=== PATIENT | female | born 1935 | race Caucasian/White ===

== ENCOUNTER 2020-05-30 11:14 | Outpatient (REF) | payer MEDICARE, SELFPAY ==
[2020-05-30 13:30] LABS: Alanine Aminotransferase 15 U/L (0-31); Albumin Level 4.2 g/dL (3.5-5.0); Alkaline Phosphatase 66 U/L (39-117); Aspartate Amino Transferase 19 U/L (5-31); Bilirubin Direct 0.2 mg/dL (0.0-0.5); Bilirubin Total 0.6 mg/dL (0.0-1.0); Cholesterol 184 mg/dL; HDL Cholesterol 38 mg/dL; LDL Cholesterol Calculated 95 mg/dl; Total Protein 6.7 g/dL (6.5-8.0); Triglycerides 256 mg/dL
== END 2020-05-30 11:15 | disposition home or self-care (01) ==
LOC: HO.LAB 11:14
PROVIDERS: PCP Internal Medicine; Visit Provider Internal Medicine
DX: E78.00 Pure hypercholesterolemia, unspecified (principal)
CPT/HCPCS: 80061; 80076

== ENCOUNTER 2020-09-06 | Outpatient (REF) | payer MEDICARE, MEDICAID, SELFPAY | END 2020-09-06 00:01 | disposition home or self-care (01) | LOC: HO.VC | PROVIDERS: Visit Provider Internal Medicine | DX: Z23 Encounter for immunization (principal) | CPT/HCPCS: 0011A ==

== ENCOUNTER 2020-09-08 06:36 | Outpatient (REF) | payer MEDICARE, SELFPAY ==
[2020-09-08 07:42] LABS: Alanine Aminotransferase 21 U/L (0-31); Alkaline Phosphatase 75 U/L (39-117); Anion Gap 13 (12-20); Aspartate Amino Transferase 28 U/L (5-31); Bilirubin Total 0.4 mg/dL (0.0-1.0); Blood Urea Nitrogen 17 mg/dL (9-16); Calcium 9.4 mg/dL (8.4-10.2); Carbon Dioxide 28 mmol/L (22-29); Chloride 105 mmol/L (96-108); Cholesterol 154 mg/dL; Estimated Glomerular Filt Rate > 60; Glucose Random 120 mg/dL (60-115); HDL Cholesterol 36 mg/dL; LDL Cholesterol Calculated 87 mg/dl; Potassium 3.8 mmol/L (3.3-5.1); Sodium 142 mmol/L (135-145); Total Protein 6.5 g/dL (6.5-8.0); Triglycerides 158 mg/dL
== END 2020-09-08 06:37 | disposition home or self-care (01) ==
LOC: HO.LAB 06:36
PROVIDERS: Visit Provider Internal Medicine
DX: E78.00 Pure hypercholesterolemia, unspecified (principal)
CPT/HCPCS: 36415; 80053; 80061

== ENCOUNTER 2020-10-03 | Outpatient (REF) | payer MEDICARE, MEDICAID, SELFPAY | END 2020-10-03 00:01 | disposition home or self-care (01) | LOC: HO.VC | PROVIDERS: Visit Provider Internal Medicine | DX: Z23 Encounter for immunization (principal) | CPT/HCPCS: 0012A ==

== ENCOUNTER 2021-04-29 06:41 | Emergency (ER) | payer OTHER, MEDICARE, SELFPAY ==
--- NOTE | ~2021-04-29 | CT_ITS ---
EXAM: CT HEAD WITHOUT CONTRAST CT CERVICAL SPINE INDICATION: Reason for Exam head injury TECHNIQUE: A noncontrast CT scan was performed from the skull base to the vertex. A noncontrast CT scan of the cervical spine was performed from the base of the skull through T1. Coronal and sagittal reformats were obtained at the acquisition workstation. Dose length product is 1575 mGy-cm. This CT examination was performed using dose optimization techniques as appropriate, variously including the following: *Automated exposure control *Adjustment of mA and/or kV according to patient size (this includes techniques or standardized protocols for targeted exams where dose is matched to indication/reason for exam; i.e. extremities or head) *Use of iterative reconstruction technique COMPARISON: MRI 07/06/2012 FINDINGS: Head: No evidence of acute intracranial hemorrhage or extra-axial fluid collection. No evidence of acute territorial infarction. Periventricular white matter hypodensities, a nonspecific finding but most commonly due to chronic small vessel ischemic disease. Ventricles are prominent in size in proportion to sulcal depth in keeping with global volume loss. No evidence of mass lesion, mass effect or midline shift. The calvarium is intact. Limited views of the paranasal sinuses are unremarkable. No evidence of acute sinusitis. Mastoid air cells are well aerated and middle ear cavities are clear. Bilateral lens extractions. Right frontal scalp hematoma. Cervical Spine: Straightening of cervical lordosis, likely due to immobilization collar and/or muscular spasm. Cervical vertebral bodies are normal in height and alignment. Facet joints are anatomically aligned bilaterally. Spinous processes are intact and well aligned. The atlantodens articulation is unremarkable. The atlantooccipital junction is unremarkable. No prevertebral soft tissue swelling. Multilevel degenerative disc disease throughout the cervical spine. There is also degenerative uncovertebral spurring, anterior osteophytes and facet arthropathy. Lateral masses of C1 and C2 are well aligned. Paravertebral muscles and fat planes are symmetric. No thyroid masses identified. No bulky cervical lymphadenopathy. Limited views of the lung apices do not demonstrate acute findings. Minimal pleural-parenchymal scarring. Atherosclerotic disease. CT/CT cervical spine wo con IMPRESSION: 1. No evidence of acute intracranial abnormality. 2. Degenerative changes of the cervical spine without CT evidence of traumatic injury. 3. Small right frontal scalp hematoma.
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
[2021-04-29 07:08] VITALS: BP 104/76; BP 157/78; PULSE 65; PULSE 84; RESP 16; TEMP 36.5; O2SAT 95; O2SAT 99; BMI 21.0
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
[2021-04-29 07:55] LABS: MANUAL DIFF FLAG NO
[2021-04-29 07:57] LABS: Basophils Absolute Auto 0.1 X10*3/uL (0.0-0.2); Basophils Percent Auto 1.1 % (0-2); Eosinophils Absolute Auto 0.1 X10*3/uL (0.0-0.4); Eosinophils Percent Auto 1.2 % (0-4); Hematocrit 43.6 % (37-47); Hemoglobin 13.9 g/dl (12.0-16.0); Imm Gran Abs Auto 0.06 X10*3/uL (0.00-0.03); Imm Gran Pct Auto 0.8 % (0.0-0.4); Lymphocytes Absolute Auto 2.2 X10*3/uL (1.2-4.9); Mean Corpuscular HGB Conc 31.9 g/dl (31.0-35.0); Mean Corpuscular Hemoglobin 29.3 pg (27.0-33.0); Mean Platelet Volume 8.6 fL (9.4-12.3); Monocytes Absolute Auto 0.8 X10*3/uL (0.1-1.2); Monocytes Percent Auto 10.5 % (2-11); Neutrophils Absolute Auto 4.3 X10*3/uL (2.0-8.3); Neutrophils Percent Auto 57.4 % (45-73); Platelet Count 190 X10*3/uL (160-400); Red Blood Count 4.74 X10*6/uL (4.20-5.50); Red Cell Distribution Width 13.6 % (11.0-16.0); White Blood Count 7.5 X10*3/uL (4.8-10.8)
[2021-04-29 08:23] LABS: Anion Gap 14 (12-20); Blood Urea Nitrogen 14 mg/dL (9-16); Carbon Dioxide 28 mmol/L (22-29); Chloride 104 mmol/L (96-108); Creatinine Clr Calc Pharmacy 45.1; Estimated Glomerular Filt Rate > 60; Glucose Random 100 mg/dL (60-115); Potassium 4.4 mmol/L (3.3-5.1); Sodium 142 mmol/L (135-145)
--- NOTE | 2021-04-29 08:23 | PC.NURSE ---
Daughter to bedside. Assisted pt on bedpan to void. Out of room for ct scan at this time
== END 2021-04-29 09:50 | disposition home or self-care (01) ==
PROVIDERS: Emergency Provider Emergency Medicine Emergency Medical Services; PCP Internal Medicine
DX: S09.90XA Unspecified injury of head, initial encounter (principal); G44.309 Post-traumatic headache, unspecified, not intractable; M54.2 Cervicalgia; V43.52XA Car driver injured in collision with other type car in traffic accident, initial encounter; Y93.9 Activity, unspecified; Y92.410 Unspecified street and highway as the place of occurrence of the external cause; Y99.9 Unspecified external cause status; Z79.899 Other long term (current) drug therapy; Z79.82 Long term (current) use of aspirin; Z87.891 Personal history of nicotine dependence
CPT/HCPCS: 36415; 70450; 71250; 72125; 80048; 85025; 99284

== ENCOUNTER 2021-06-13 09:00 | Outpatient (RCR) | payer OTHER, MEDICARE, SELFPAY ==
[2021-05-15 09:14] VITALS: BP 159/67; PULSE 66; O2SAT 94
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
== END 2021-06-13 09:54 | disposition home or self-care (01) ==
LOC: HO.PT 09:00
PROVIDERS: PCP Internal Medicine; Visit Provider Nurse Practitioner Family
DX: M54.2 Cervicalgia (principal); M54.9 Dorsalgia, unspecified
CPT/HCPCS: 97110; 97140; 97162; 97530

== ENCOUNTER 2021-08-06 15:52 | Outpatient (REF) | payer MEDICARE, OTHER, SELFPAY ==
[2021-08-06 16:48] LABS: Basophils Absolute Auto 0.1 X10*3/uL (0.0-0.2); Eosinophils Absolute Auto 0.2 X10*3/uL (0.0-0.4); Eosinophils Percent Auto 2.3 % (0-4); Hematocrit 42.7 % (37.0-47.0); Hemoglobin 13.3 g/dl (12.0-16.0); Imm Gran Abs Auto 0.05 X10*3/uL (0.00-0.03); Imm Gran Pct Auto 0.6 % (0.0-0.4); Lymphocytes Absolute Auto 3.5 X10*3/uL (1.2-4.9); Lymphocytes Percent Auto 43.4 % (20-40); MANUAL DIFF FLAG NO; Mean Corpuscular HGB Conc 31.1 g/dl (31.0-35.0); Mean Corpuscular Hemoglobin 29.6 pg (27.0-33.0); Mean Corpuscular Volume 94.9 fL (80.0-98.0); Mean Platelet Volume 9.2 fL (9.4-12.3); Monocytes Absolute Auto 0.9 X10*3/uL (0.1-1.2); Monocytes Percent Auto 11.5 % (2-11); Neutrophils Absolute Auto 3.4 x10*3/uL (2.0-8.3); Neutrophils Percent Auto 41.2 % (45-73); Platelet Count 215 X10*3/uL (160-400); Red Cell Distribution Width 13.5 % (11.0-16.0); White Blood Count 8.2 X10*3/uL (4.8-10.8)
[2021-08-06 17:22] LABS: B Type Natriuretic Peptide 124 pg/mL (<100)
[2021-08-06 17:29] LABS: Alanine Aminotransferase 29 U/L (0-31); Albumin Level 4.1 g/dL (3.5-5.0); Alkaline Phosphatase 108 U/L (39-117); Anion Gap 9 (12-20); Aspartate Amino Transferase 31 U/L (5-31); Bilirubin Total 0.3 mg/dL (0.0-1.0); Blood Urea Nitrogen 17 mg/dL (9-16); Carbon Dioxide 32 mmol/L (22-29); Chloride 105 mmol/L (96-108); Cholesterol 181 mg/dL; Estimated Glomerular Filt Rate > 60; Glucose Random 88 mg/dL (60-115); HDL Cholesterol 41 mg/dL; LDL Cholesterol Calculated 78 mg/dl; Potassium 4.6 mmol/L (3.3-5.1); Sodium 141 mmol/L (135-145); Total Protein 7.1 g/dL (6.5-8.0); Triglycerides 310 mg/dL
[2021-08-06 17:37] LABS: Free T4 (Free Thyroxine) 0.84 ng/dL (0.71-1.85); Thyroid Stimulating Hormone 0.93 uIU/mL (0.32-4.0); Vitamin D 25-OH Total 55.9 ng/mL (>30)
[2021-08-06 19:43] LABS: Folate > 20.0 ng/mL (> or = 4.0); Vitamin B12 533 pg/mL (200-900)
== END 2021-08-06 15:53 | disposition home or self-care (01) ==
LOC: HO.LAB 15:52
PROVIDERS: PCP Internal Medicine; Visit Provider Internal Medicine
DX: E78.00 Pure hypercholesterolemia, unspecified (principal); I25.5 Ischemic cardiomyopathy
CPT/HCPCS: 36415; 80053; 80061; 82306; 82607; 82746; 83880; 84439; 84443; 85025

== ENCOUNTER 2022-12-05 09:00 | Outpatient (RCR) | payer MEDICARE, OTHER, SELFPAY | END 2023-01-14 09:10 | disposition home or self-care (01) | LOC: HO.PTCHIC 09:00 | PROVIDERS: PCP Internal Medicine; Visit Provider Physician Assistant Medical | DX: M43.6 Torticollis (principal) | CPT/HCPCS: 97110; 97140; 97163 ==

== ENCOUNTER 2023-02-19 13:13 | Outpatient (AMB) | payer MEDICARE, SELFPAY ==
[2023-02-19 13:18] VITALS: BP 122/72; PULSE 78; O2SAT 91; BMI 26.2
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
== END 2023-02-19 14:14 | disposition home or self-care (01) ==
PROVIDERS: PCP Internal Medicine; Visit Provider Internal Medicine
DX: I10 Essential (primary) hypertension (principal); S12.600A Unspecified displaced fracture of seventh cervical vertebra, initial encounter for closed fracture; J43.9 Emphysema, unspecified; C67.9 Malignant neoplasm of bladder, unspecified; N20.0 Calculus of kidney; R41.89 Other symptoms and signs involving cognitive functions and awareness; F41.1 Generalized anxiety disorder; I25.5 Ischemic cardiomyopathy; I25.10 Atherosclerotic heart disease of native coronary artery without angina pectoris; E78.00 Pure hypercholesterolemia, unspecified
CPT/HCPCS: 99214

== ENCOUNTER → 2023-05-14 12:55 | Outpatient (REF) | payer MEDICARE, OTHER, SELFPAY | LOC: HO.SL 12:55 | PROVIDERS: PCP Internal Medicine; Visit Provider Internal Medicine | DX: G47.33 Obstructive sleep apnea (adult) (pediatric) (principal) | CPT/HCPCS: 95806 ==

== ENCOUNTER → 2023-05-14 13:06 | Outpatient (BNV) | payer MEDICARE, SELFPAY | PROVIDERS: PCP Internal Medicine; Visit Provider Internal Medicine | DX: R06.83 Snoring (principal) | CPT/HCPCS: 95806 ==

== ENCOUNTER 2023-08-27 08:47 | Outpatient (AMB) | payer MEDICARE, SELFPAY ==
[2023-08-27 08:53] VITALS: BP 120/76; PULSE 74; O2SAT 96; BMI 26.3
--- NOTE | 2023-08-27 08:53 | MHC.PC.OV ---
Vital Signs 08/27/23 08:53 Height 5 ft 2 in Weight 144 lb BMI 26.3 BP 120/76 Blood Pressure Location Lt brachial Position Sitting Pulse 74 Pulse Source Pulse Oximeter Pulse Oximetry (%) 96 Oxygen Delivery Method Room Air Intake Visit Reasons: cad Allergies alendronate sodium [Fosamax] Allergy (Unknown, Verified 08/27/23 08:53) unknown rosuvastatin [Crestor] Allergy (Unknown, Verified 08/27/23 08:53) leg pain psyllium Adverse Reaction (Severe, Verified 08/27/23 08:53) Rash Medication List - Last Reconciled 08/27/23 by Ben Lopez Po, acetaminophen (Tylenol Extra Strength) 500 mg PO Q6H PRN alprazolam 0.5 mg PO BID PRN 90 days ascorbic acid (vitamin C) 1 g PO BID aspirin (Adult Low Dose Aspirin) 81 mg PO DAILY atorvastatin 20 mg PO DAILY cholecalciferol (vitamin D3) 25 mcg PO DAILY clopidogrel 75 mg PO DAILY coenzyme Q10 (Co Q-10) 100 mg PO DAILY dextrin (Easy Fiber) grams PO donepezil 10 mg PO BEDTIME fluticasone furoate-vilanterol 200-25 mcg/dose (Breo Ellipta) 1 inh inhalation DAILY garlic 200 mg PO DAILY ipratropium bromide 2 sprays intranasal BID memantine (Namenda) 5 mg PO BID 90 days metoprolol succinate ER 25 mg PO DAILY 90 days multivitamin 1 tab PO DAILY nitroglycerin 0.4 mg sublingual Q5M PRN Oxygen Home Use please discontinue OXYGEN therapy propylene glycol 0.6% (Systane Complete) 1 drp ophthalmic (eye) DAILY PRN sacubitril-valsartan 49-51 mg 1 tab PO BID vit [id number] mg (Bioflex) tabs PO zolpidem 5 mg PO BEDTIME PRN Tobacco use date assessed: 08/27/23 Fall risk assessment: No Falls in past year Last assessed Fall Risk: 08/27/23 Dental Screening Dental Screen Date: 08/27/23 Did you have a dental visit in the last 12 months?: Yes Did you have a dental problem in the last 6 months where you did not have access to dental care?: No Was dental information given to patient?: Patient has dentist HPI cad HPI Details 88-year-old overweight female with a history of nephrolithiasis C7 cervical fracture generalized anxiety disorder cognitive impairment cardiomyopathy COPD CAD hypercholesterolemia hypertension and urinary bladder cancer last seen in February 2023. Patient is here for follow-up. Review of the notes June 2023 seen by Cardiology MYLENE burt.. Patient also had a sleep study done May 2023 showing normal sleep study noted snoring 3rd 9% PFSH Medical History (Updated 08/27/23 @ 09:23 by Ben Matson MD) Obstructive sleep apnea C7 cervical fracture Traumatic coccydynia Cognitive impairment Cervical spinal stenosis Tubular adenoma of colon Right rotator cuff tear Wrist fracture, right Ankle fracture, left Urinary bladder cancer Peripheral vascular disease Insomnia Cardiomyopathy Vitamin D deficiency Lumbar degenerative disc disease Peripheral neuropathy COPD (chronic obstructive pulmonary disease) Coronary artery disease Hypercholesterolemia Hypertension Surgical History History of surgery History of hip replacement History of cataract surgery Family History (Updated 11/22/22 @ 08:51 by Lizabeth Herrera CMA) Father Medical history unknown Mother Diabetes Social History (Updated 05/04/21 @ 14:35 by LATOYA Porras) Housing: House Alcohol intake: current Alcohol intake frequency: holidays/special occasions only Patient Tobacco Use Status: Former Tobacco user Tobacco use type: Cigarette e-Cigarette/Vaping Use: Never Used Second Hand Smoke Exposure: Yes service: No Current occupational status: retired and disabled Cognitive needs: No Hearing needs: No Vision needs: Yes Questionnaire PHQ-9 Over the last 2 weeks, how often have you been bothered by any of the following problems? 1. Little interest or pleasure in doing things: nearly every day 2. Feeling down, depressed, or hopeless: nearly every day 3. Trouble falling or staying asleep, or sleeping too much: nearly every day 4. Feeling tired or having little energy: more than half the days 5. Poor appetite or overeating: not at all 6. Feeling bad about yourself - or that you are a failure or have let yourself or your family down: several days 7. Trouble concentrating on things, such as reading the newspaper or watching television: not at all 8. Moving or speaking so slowly that other people could have noticed. Or the opposite - being so fidgety or restless that you have been moving around a lot more than usual: not at all 9. Thoughts that you would be better off or of hurting yourself in some way: not at all Total score: 12 Depression Screening Interpretation: Positive Depression Screening Done: Yes Source: Developed by Drs. Ryan Dinh, Jannette Rodgers, Elmer Garcia and colleagues, with an educational tushar from [employer]. Thrive Questionnaire Date Thrive assessed: 08/27/23 I am a: Patient What is your living situation today?: I have a steady place to live Within the past 12 months, did the food you bought not last and you didn't have the money to get more?: Never true Within the past 12 months, did you worry whether your food would run out before you got money to buy more?: Never true Do you have trouble paying for medicines?: No Do you have trouble getting transportation to medical appointments?: No Do you have trouble paying your heating and electricity bill?: No Do you have trouble taking care of your child, family member or friend?: No Do you have trouble with day-to-day activities such as bathing, preparing meals, shopping, managing finances, etc.?: No Are you currently unemployed and looking for a job?: No Are you interested in more education?: No Currently or been in a relationship where the following occur: no concerns reported THRIVE Score: 0 AUDIT C Alcohol Use Questionnaire (AUDIT-C) 1. How often do you have a drink containing alcohol?: Monthly or less 2. How many drinks containing alcohol do you have on a typical day when you are drinking?: 1 or 2 3. How often do you have six or more drinks on one occasion?: Never Total Score: 1 OLEG-7 AMB Questionnaire OLEG-7 Date OLEG - 7 assessed: 08/27/23 Feeling nervous, anxious, or on edge: 1 = Several days Not being able to stop or control worryin = Not at all Worrying too much about different things: 0 = Not at all Trouble relaxin = Not at all Being so restless that it is hard to sit still: 0 = Not at all Becoming easily annoyed or irritable: 0 = Not at all Feeling afraid as if something awful might happen: 0 = Not at all Total OLEG-7 score (0-4 normal; 5-9 mild; 10-14 moderate; 15-21 severe): 1 Source: Developed by Drs. Ryan Dinh, Jannette Rodgers, Elmer Garcia and colleagues, with an educational tushar from [employer]. Physical exam (Primary Care) Vital Signs: Last Vital Signs Pulse 74 08/27/23 08:53 BP 120/76 08/27/23 08:53 Pulse Ox 96 08/27/23 08:53 Oxygen Delivery Method Room Air 08/27/23 08:53 BMI result Body Mass Index 26.3 Tobacco/Smoking Status: Tobacco use Status Tobacco use date assessed 08/27/23 08/27/23 08:59 Patient Tobacco Use Status Former Tobacco user 08/27/23 08:59 Tobacco use type Cigarette 08/27/23 08:59 e-Cigarette/Vaping Use Never Used 08/27/23 08:59 PHQ-9: PHQ-9 Score PHQ-9: Total score 12 08/27/23 08:59 Depression Screening Interpretation: Positive Thrive Assessment: Date of Thrive Assessment Date Thrive assessed 08/27/23 08/27/23 08:59 Currently or been in a relationship where the following occur: no concerns reported Const General: alert; No acute distress Eyes Conjunctivae: conjunctivae normal Resp Auscultation: clear to auscultation bilaterally Cardio Rate: regular rate Rhythm: regular rhythm GI Inspection: Yes normal to inspection Extrem General: Yes normal to inspection and No edema Assessment and Plan Assessment & Plan (1) Hypertension: Code(s): I10 - Essential (primary) hypertension Plan: Continue with blood pressure medication. Decrease salt intake and exercise patient takes metoprolol 25 mg once a day Entresto 49/51 twice a day (2) Hypercholesterolemia: Code(s): E78.00 - Pure hypercholesterolemia, unspecified Plan: Avoid fried foods, chicken skin, eggs, butter margarine, pastries and meat. Be it pork or beef they have a lot of cholesterol LDL goal of less than 70 and triglyceride of less than 150 atorvastatin 20 mg once a day patient is advised to get blood work done (3) Coronary artery disease: Comment: [place] 1990 with stent placement 2003 Dr. Lance echo October 2016 ejection fraction 40-45% and STEMI May 2018 catheterization done left circumflex occluded good LAD and RCA echo March 2019 global hypokinesis 45-50% grade 1 diastolic dysfunction September 2019 moderate global hypokinesis 40-45% January 2020 EF 40-45% Code(s): I25.10 - Atherosclerotic heart disease of [place] coronary artery without angina pectoris Qualifiers: Coronary Disease-Associated Artery/Lesion type: [place] artery [place] vs. transplanted heart: [place] heart Associated angina: without angina Qualified Code(s): I25.10 - Atherosclerotic heart disease of [place] coronary artery without angina pectoris Plan: Control the cholesterol, weight, blood pressure, diabetes continue with aspirin (4) Cardiomyopathy: Comment: Echocardiogram February 2023 severe global hypokinesis LV EF 25-30% moderate mitral regurg Code(s): I42.9 - Cardiomyopathy, unspecified Qualifiers: Cardiomyopathy type: ischemic Qualified Code(s): I25.5 - Ischemic cardiomyopathy Plan: Continue to follow up with Cardiology (5) Generalized anxiety disorder: Code(s): F41.1 - Generalized anxiety disorder Plan: Continue with present medication (6) C7 cervical fracture: Code(s): S12.600A - Unspecified displaced fracture of seventh cervical vertebra, initial encounter for closed fracture Plan: Keep active do stretches Medications: Refilled zolpidem 5 mg PO BEDTIME PRN 30 tabs 1RF sleep G47.00 - Insomnia, unspecified Coding Level of Care Code Est Pt Level 4 (96391) Diagnoses Hypertension I10 Hypercholesterolemia E78.00 Coronary artery disease involving [place] coronary artery of [place] heart without angina pectoris I25.10 Coronary Disease-Associated Artery/Lesion type: [place] artery [place] vs. transplanted heart: [place] heart Associated angina: without angina Ischemic cardiomyopathy I25.5 Cardiomyopathy type: ischemic Generalized anxiety disorder F41.1 C7 cervical fracture S12.600A
== END 2023-08-27 09:41 | disposition home or self-care (01) ==
PROVIDERS: PCP Internal Medicine; Visit Provider Internal Medicine
DX: I10 Essential (primary) hypertension (principal); S12.600A Unspecified displaced fracture of seventh cervical vertebra, initial encounter for closed fracture; E78.00 Pure hypercholesterolemia, unspecified; I25.5 Ischemic cardiomyopathy; I25.10 Atherosclerotic heart disease of native coronary artery without angina pectoris; F41.1 Generalized anxiety disorder
CPT/HCPCS: 99214

== ENCOUNTER 2024-02-23 07:03 | Outpatient (REF) | payer MEDICARE, SELFPAY ==
[2024-02-23 07:16] LABS: MANUAL DIFF FLAG NO
[2024-02-23 08:01] LABS: Basophils Absolute Auto 0.1 X10*3/uL (0.0-0.2); Basophils Percent Auto 1.1 % (0-2); Eosinophils Absolute Auto 0.1 X10*3/uL (0.0-0.4); Eosinophils Percent Auto 1.2 % (0-4); Hematocrit 41.7 % (37.0-47.0); Hemoglobin 13.8 g/dl (12.0-16.0); Imm Gran Abs Auto 0.06 X10*3/uL (0.00-0.03); Imm Gran Pct Auto 0.9 % (0.0-0.4); Lymphocytes Absolute Auto 2.4 X10*3/uL (1.2-4.9); Lymphocytes Percent Auto 36.6 % (20-40); Mean Corpuscular HGB Conc 33.1 g/dl (31.0-35.0); Mean Corpuscular Hemoglobin 30.5 pg (27.0-33.0); Mean Corpuscular Volume 92.1 fL (80.0-98.0); Monocytes Absolute Auto 0.8 X10*3/uL (0.1-1.2); Monocytes Percent Auto 12.2 % (2-11); Neutrophils Absolute Auto 3.1 x10*3/uL (2.0-8.3); Platelet Count 208 X10*3/uL (160-400); Red Blood Count 4.53 X10*6/uL (4.20-5.50); Red Cell Distribution Width 14.4 % (11.0-16.0); White Blood Count 6.6 X10*3/uL (4.8-10.8)
[2024-02-23 08:20] LABS: B Type Natriuretic Peptide 163 pg/mL (<100)
[2024-02-23 08:32] LABS: Appearance Urine Clear; Color Urine Yellow; Glucose Urine UA Negative (Negative); Leukocyte Esterase Urine Moderate (2+) (Negative); Nitrite Urine Negative (Negative); Specific Gravity - Urine 1.015 (1.005-1.025); UMIC TRIGGER UACC YES; Urine Blood Moderate (2+) (Negative); Urine Ketones Negative (Negative); Urine Protein Negative (Neg-Trace)
[2024-02-23 08:34] LABS: Alanine Aminotransferase 16 U/L (0-31); Albumin Level 4.1 g/dL (3.5-5.0); Alkaline Phosphatase 76 U/L (39-117); Anion Gap 14 (12-20); Aspartate Amino Transferase 19 U/L (5-31); Bilirubin Total 0.3 mg/dL (0.0-1.0); Blood Urea Nitrogen 9 mg/dL (9-16); Carbon Dioxide 25 mmol/L (22-29); Chloride 107 mmol/L (96-108); Cholesterol 177 mg/dL (<200); Estimated Glomerular Filt Rate > 60; Glucose Random 96 mg/dL (60-115); HDL Cholesterol 52 mg/dL (>40); LDL Cholesterol Calculated 97 mg/dL (<100); Potassium 3.9 mmol/L (3.3-5.1); Sodium 142 mmol/L (135-145); Total Protein 6.7 g/dL (6.5-8.0); Triglycerides 144 mg/dL (<150)
[2024-02-23 08:43] LABS: Bacteria Urine Trace (None Seen); Hyaline Casts Urine 0-2 /LPF (0-2); UACC Culture Trigger YES
[2024-02-23 08:54] LABS: Thyroid Stimulating Hormone 1.35 uIU/mL (0.32-4.0); Vitamin D 25-OH Total 51.9 ng/mL (>30)
[2024-02-23 08:59] LABS: Folate 13.1 ng/mL (> or = 4.0); Vitamin B12 380 pg/mL (200-900)
== END 2024-02-23 07:04 | disposition home or self-care (01) ==
LOC: HO.LAB 07:03
PROVIDERS: PCP Internal Medicine; Visit Provider Internal Medicine
DX: I25.10 Atherosclerotic heart disease of native coronary artery without angina pectoris (principal); E78.00 Pure hypercholesterolemia, unspecified; R30.0 Dysuria; R82.90 Unspecified abnormal findings in urine
CPT/HCPCS: 36415; 80053; 80061; 81001; 82306; 82607; 82746; 83880; 84439; 84443; 85025; 87086

== ENCOUNTER 2024-02-25 08:31 | Outpatient (AMB) | payer MEDICARE, SELFPAY ==
[2024-02-25 08:36] VITALS: BP 122/68; PULSE 64; O2SAT 94; BMI 25.4
--- NOTE | 2024-02-25 08:36 | MHC.PC.OV ---
Vital Signs 02/25/24 08:36 Height 5 ft 2 in Weight 139 lb BMI 25.4 BP 122/68 Blood Pressure Location Lt brachial Position Sitting Pulse 64 Pulse Source Pulse Oximeter Pulse Oximetry (%) 94 Oxygen Delivery Method Room Air Intake Visit Reasons: Hypertension Allergies alendronate sodium [Fosamax] Allergy (Unknown, Verified 02/25/24 08:36) unknown rosuvastatin [Crestor] Allergy (Unknown, Verified 02/25/24 08:36) leg pain psyllium Adverse Reaction (Severe, Verified 02/25/24 08:36) Rash Tobacco use date assessed: 08/27/23 Fall risk assessment: No Falls in past year Last assessed Fall Risk: 02/25/24 Dental Screening Dental Screen Date: 08/27/23 HPI Hypertension HPI Details 88-year-old female with hypertension coronary artery disease ischemic cardiomyopathy hypercholesterolemia history of C7 cervical fracture coming in for follow-up. Last seen in 08/23/2023. Review of the notes has followed up with Cardiology in October 2023 to it. Echocardiogram last in October. PAtient cognition is getting worse and family is noticing it worse. they have the health care proxy form would like this to be invoked. [facility] Medical History (Updated 08/27/23 @ 09:23 by Ben Matson MD) Obstructive sleep apnea C7 cervical fracture Traumatic coccydynia Cognitive impairment Cervical spinal stenosis Tubular adenoma of colon Right rotator cuff tear Wrist fracture, right Ankle fracture, left Urinary bladder cancer Peripheral vascular disease Insomnia Cardiomyopathy Vitamin D deficiency Lumbar degenerative disc disease Peripheral neuropathy COPD (chronic obstructive pulmonary disease) Coronary artery disease Hypercholesterolemia Hypertension Surgical History History of surgery History of hip replacement History of cataract surgery Family History (Updated 11/22/22 @ 08:51 by Lizabeth Herrera CMA) Father Medical history unknown Mother Diabetes Social History (Updated 05/04/21 @ 14:35 by LATOYA Porras) Housing: House Alcohol intake: current Alcohol intake frequency: holidays/special occasions only Patient Tobacco Use Status: Former Tobacco user Tobacco use type: Cigarette e-Cigarette/Vaping Use: Never Used Second Hand Smoke Exposure: Yes service: No Current occupational status: retired and disabled Cognitive needs: No Hearing needs: No Vision needs: Yes Questionnaire PHQ-9 Over the last 2 weeks, how often have you been bothered by any of the following problems? 1. Little interest or pleasure in doing things: nearly every day 2. Feeling down, depressed, or hopeless: nearly every day 3. Trouble falling or staying asleep, or sleeping too much: nearly every day 4. Feeling tired or having little energy: more than half the days 5. Poor appetite or overeating: not at all 6. Feeling bad about yourself - or that you are a failure or have let yourself or your family down: several days 7. Trouble concentrating on things, such as reading the newspaper or watching television: not at all 8. Moving or speaking so slowly that other people could have noticed. Or the opposite - being so fidgety or restless that you have been moving around a lot more than usual: not at all 9. Thoughts that you would be better off or of hurting yourself in some way: not at all Total score: 12 Depression Screening Interpretation: Positive Depression Screening Done: Yes Source: Developed by Drs. Ryan Dinh, Elmer Little and colleagues, with an educational tushar from [employer]. Thrive Questionnaire Date Thrive assessed: 08/27/23 AUDIT C Alcohol Use Questionnaire (AUDIT-C) 1. How often do you have a drink containing alcohol?: Monthly or less 2. How many drinks containing alcohol do you have on a typical day when you are drinking?: 1 or 2 3. How often do you have six or more drinks on one occasion?: Never Total Score: 1 OLEG-7 AMB Questionnaire OLEG-7 Date OLEG - 7 assessed: 08/27/23 Source: Developed by Drs. Ryan Dinh, Jannette Rodgers, Elmer Garcia and colleagues, with an educational tushar from [employer]. Physical exam (Primary Care) Vital Signs: Last Vital Signs Pulse 64 02/25/24 08:36 BP 122/68 02/25/24 08:36 Pulse Ox 94 02/25/24 08:36 Oxygen Delivery Method Room Air 02/25/24 08:36 BMI result Body Mass Index 25.4 Tobacco/Smoking Status: Tobacco use Status Tobacco use date assessed 08/27/23 02/25/24 08:42 Patient Tobacco Use Status Former Tobacco user 02/25/24 08:42 Tobacco use type Cigarette 02/25/24 08:42 e-Cigarette/Vaping Use Never Used 02/25/24 08:42 PHQ-9: PHQ-9 Score PHQ-9: Total score 12 02/25/24 08:42 Depression Screening Interpretation: Positive Thrive Assessment: Date of Thrive Assessment Date Thrive assessed 08/27/23 02/25/24 08:42 Const General: alert; No acute distress Eyes Conjunctivae: conjunctivae normal Resp Auscultation: clear to auscultation bilaterally Cardio Rate: regular rate Rhythm: regular rhythm GI Inspection: Yes normal to inspection Extrem General: Yes normal to inspection and No edema Assessment and Plan Assessment & Plan (1) Coronary artery disease: Comment: [place] 1990 with stent placement 2003 Dr. Lance echo October 2016 ejection fraction 40-45% and STEMI May 2018 catheterization done left circumflex occluded good LAD and RCA echo March 2019 global hypokinesis 45-50% grade 1 diastolic dysfunction September 2019 moderate global hypokinesis 40-45% January 2020 EF 40-45% Code(s): I25.10 - Atherosclerotic heart disease of [place] coronary artery without angina pectoris Qualifiers: Coronary Disease-Associated Artery/Lesion type: [place] artery [place] vs. transplanted heart: [place] heart Associated angina: without angina Qualified Code(s): I25.10 - Atherosclerotic heart disease of [place] coronary artery without angina pectoris Plan: Control the cholesterol, weight, blood pressure, diabetes continue with aspirin patient is also on clopidogrel (2) Hypertension: Code(s): I10 - Essential (primary) hypertension Plan: Continue with blood pressure medication. Decrease salt intake and exercise continue with metoprolol 25 mg once a day Entresto 49/51 mg twice a day (3) Hypercholesterolemia: Code(s): E78.00 - Pure hypercholesterolemia, unspecified Plan: Avoid fried foods, chicken skin, eggs, butter margarine, pastries and meat. Be it pork or beef they have a lot of cholesterol LDL goal of less than 70 and triglyceride of less than 150 presently on atorvastatin 20 mg once a day (4) COPD (chronic obstructive pulmonary disease): Code(s): J44.9 - Chronic obstructive pulmonary disease, unspecified Qualifiers: COPD type: emphysema Emphysema type: unspecified Qualified Code(s): J43.9 - Emphysema, unspecified Plan: Continue with Breo and reminded about rinsing mouth after using it. (5) Cardiomyopathy: Comment: Echocardiogram February 2023 severe global hypokinesis LV EF 25-30% moderate mitral regurg Code(s): I42.9 - Cardiomyopathy, unspecified Qualifiers: Cardiomyopathy type: ischemic Qualified Code(s): I25.5 - Ischemic cardiomyopathy Plan: Patient follows up with Cardiology continuing present medication (6) Generalized anxiety disorder: Code(s): F41.1 - Generalized anxiety disorder Plan: Continue with present medication Orders: Orders Vitamin B12 and Folate 6 Months I25.5 - Ischemic cardiomyopathy Magnesium 6 Months I25.5 - Ischemic cardiomyopathy B Type Natriuretic Peptide 6 Months I25.5 - Ischemic cardiomyopathy Complete Blood Count Auto Diff 6 Months I25.5 - Ischemic cardiomyopathy Comprehensive Met. Panel 6 Months I25.5 - Ischemic cardiomyopathy Free T4 (Free Thyroxine) 6 Months I25.5 - Ischemic cardiomyopathy Thyroid Stimulating Hormone 6 Months I25.5 - Ischemic cardiomyopathy Vitamin D 25-OH Total 6 Months I25.5 - Ischemic cardiomyopathy Medications: New albuterol sulfate 90 mcg/actuation (Proventil HFA) 2 puffs inhalation Q4-6H PRN 8.5 grams 0RF Shortness Of Breath J45.909 - Unspecified asthma, uncomplicated Refilled fluticasone furoate-vilanterol 200-25 mcg/dose (Breo Ellipta) 1 inh inhalation DAILY 60 ea 12RF J43.9 - Emphysema, unspecified Coding Level of Care Code Est Pt Level 4 (84440) Diagnoses Coronary artery disease involving [place] coronary artery of [place] heart without angina pectoris I25.10 Coronary Disease-Associated Artery/Lesion type: [place] artery [place] vs. transplanted heart: [place] heart Associated angina: without angina Hypertension I10 Hypercholesterolemia E78.00 Pulmonary emphysema, unspecified emphysema type J43.9 COPD type: emphysema Emphysema type: unspecified Ischemic cardiomyopathy I25.5 Cardiomyopathy type: ischemic Generalized anxiety disorder F41.1
== END 2024-02-25 09:20 | disposition home or self-care (01) ==
PROVIDERS: PCP Internal Medicine; Visit Provider Internal Medicine
DX: I25.10 Atherosclerotic heart disease of native coronary artery without angina pectoris (principal); I10 Essential (primary) hypertension; E78.00 Pure hypercholesterolemia, unspecified; J43.9 Emphysema, unspecified; I25.5 Ischemic cardiomyopathy; F41.1 Generalized anxiety disorder
CPT/HCPCS: 99214

== ENCOUNTER 2024-04-18 08:23 | Emergency (ER) | payer MEDICARE, SELFPAY ==
--- NOTE | ~2024-04-18 | CT_ITS ---
EXAMINATION: CT head/brain wo IV con (accession [id number]), CT cervical spine wo IV con (accession [id number]) INDICATION INFORMATION: s/p fall, on anticoagulation COMPARISON: CT head and cervical spine 04/29/2021 TECHNIQUE: Separate noncontrast CT examinations of the head and cervical spine were performed. Coronal and sagittal images were created for each examination at the technologist workstation. This CT examination was performed using dose optimization techniques as appropriate, variously including the following: *Automated exposure control *Adjustment of mA and/or kV according to patient size (this includes techniques or standardized protocols for targeted exams where dose is matched to indication/reason for exam; i.e. extremities or head) *Use of iterative reconstruction technique DLP: 1113 mGy-cm FINDINGS: Head: No acute osseous or soft tissue abnormality. The mastoid air cells and visualized portions of the paranasal sinuses are well aerated. Bilateral lens replacements. There is no evidence of acute intracranial hemorrhage or territorial infarction. No abnormal mass effect or midline shift is seen. Kim to white matter differentiation is well preserved. No extra-axial fluid collections are identified. No hydrocephalus. Proportional prominence of the ventricles and sulcal spaces is consistent with moderate volume loss. Patchy periventricular and deep white matter hypoattenuation is consistent with moderate small vessel ischemic changes. Cervical spine: Again seen is a mild inferior endplate wedge compression deformity of the C6 vertebral body. There has been interval progression of an inferior end plate wedge compression deformity at C7 now with approximately 25% height loss, previously minimal height loss. Dextroconvex curvature of the cervical spine. Advanced multilevel degenerative disc disease with multilevel bilateral advanced neural foraminal narrowing with a disc protrusion at C3-C4 again seen resulting in mass effect on the cord better characterized on prior MR lumbar spine 01/14/2020. No pre- or paravertebral soft tissue abnormality is identified. Visualized portions of the lung apices are unremarkable. The thyroid gland is unremarkable. CT/CT head/brain wo IV con IMPRESSION: 1. No acute intracranial abnormality. 2. Again seen is a mild inferior endplate wedge compression deformity of the C6 vertebral body. There has been interval progression of an inferior end plate wedge compression deformity at C7 now with approximately 25% height loss, previously minimal height loss. 3. Advanced multilevel degenerative disc disease with multilevel bilateral advanced neural foraminal narrowing with a disc protrusion at C3-C4 again seen resulting in mass effect on the cord better characterized on prior MR lumbar spine 01/14/2020. Electronically signed by: Maryjo Maria MD 04/18/2024 10:33 AM EDT RP
--- NOTE | ~2024-04-18 | CT_ITS ---
EXAMINATION: CT head/brain wo IV con (accession [id number]), CT cervical spine wo IV con (accession [id number]) INDICATION INFORMATION: s/p fall, on anticoagulation COMPARISON: CT head and cervical spine 04/29/2021 TECHNIQUE: Separate noncontrast CT examinations of the head and cervical spine were performed. Coronal and sagittal images were created for each examination at the technologist workstation. This CT examination was performed using dose optimization techniques as appropriate, variously including the following: *Automated exposure control *Adjustment of mA and/or kV according to patient size (this includes techniques or standardized protocols for targeted exams where dose is matched to indication/reason for exam; i.e. extremities or head) *Use of iterative reconstruction technique DLP: 1113 mGy-cm FINDINGS: Head: No acute osseous or soft tissue abnormality. The mastoid air cells and visualized portions of the paranasal sinuses are well aerated. Bilateral lens replacements. There is no evidence of acute intracranial hemorrhage or territorial infarction. No abnormal mass effect or midline shift is seen. Kim to white matter differentiation is well preserved. No extra-axial fluid collections are identified. No hydrocephalus. Proportional prominence of the ventricles and sulcal spaces is consistent with moderate volume loss. Patchy periventricular and deep white matter hypoattenuation is consistent with moderate small vessel ischemic changes. Cervical spine: Again seen is a mild inferior endplate wedge compression deformity of the C6 vertebral body. There has been interval progression of an inferior end plate wedge compression deformity at C7 now with approximately 25% height loss, previously minimal height loss. Dextroconvex curvature of the cervical spine. Advanced multilevel degenerative disc disease with multilevel bilateral advanced neural foraminal narrowing with a disc protrusion at C3-C4 again seen resulting in mass effect on the cord better characterized on prior MR lumbar spine 01/14/2020. No pre- or paravertebral soft tissue abnormality is identified. Visualized portions of the lung apices are unremarkable. The thyroid gland is unremarkable. CT/CT cervical spine wo IV con IMPRESSION: 1. No acute intracranial abnormality. 2. Again seen is a mild inferior endplate wedge compression deformity of the C6 vertebral body. There has been interval progression of an inferior end plate wedge compression deformity at C7 now with approximately 25% height loss, previously minimal height loss. 3. Advanced multilevel degenerative disc disease with multilevel bilateral advanced neural foraminal narrowing with a disc protrusion at C3-C4 again seen resulting in mass effect on the cord better characterized on prior MR lumbar spine 01/14/2020. Electronically signed by: Maryjo Maria MD 04/18/2024 10:33 AM EDT RP
--- NOTE | ~2024-04-18 | CT_ITS ---
EXAMINATION: CT HIP WITHOUT CONTRAST, RIGHT CLINICAL INFORMATION: Pain after fall COMPARISON: None available. TECHNIQUE: Multidetector volumetric imaging was obtained through the right hip without contrast material. Multiplanar reformatted images were submitted in coronal and sagittal planes. This CT examination was performed using dose optimization techniques as appropriate, variously including the following: *Automated exposure control *Adjustment of mA and/or kV according to patient size (this includes techniques or standardized protocols for targeted exams where dose is matched to indication/reason for exam; i.e. extremities or head) *Use of iterative reconstruction technique DLP: 168 mGy-cm FINDINGS: No fracture of the right hip. Right femoral head is well-seated within the acetabulum. There is mild to moderate narrowing of the femoral acetabular joint space. Small osteophytes are noted at the femoral head/neck junction and along the acetabulum. Visualized bones of the pelvis demonstrate no fracture. There are prominent degenerative changes of the pubic symphysis. No gross soft tissue abnormality. CT/CT hip RT wo IV con IMPRESSION: No fracture of the right hip. Electronically signed by: Neri Sue MD 04/18/2024 10:23 AM EDT
[2024-04-18 08:24] VITALS: BP 146/59; PULSE 68; RESP 16; TEMP 36.5; O2SAT 96; BMI 26.5
[2024-04-18 08:43] VITALS: BP 138/66; PULSE 63; RESP 16; TEMP 36.9; O2SAT 95
--- NOTE | 2024-04-18 08:51 | ED_ITS ---
HPI - Fall General Chief Complaint: Fall Stated Complaint: r hip pain-fall Time Seen by Provider: 04/18/24 08:51 Source: patient and family Mode of arrival: ambulatory Limitations: no limitations History of Present Illness ED Provider: Seferino Jordan PA-C HPI Narrative: 88-year-old female with a history of dementia, bladder cancer, HTN, HLD, CAD, COPD, peripheral neuropathy, cardiomyopathy, PVD who presents to the ER from home with her daughter who she lives with for evaluation of right and lateral thigh pain after she slipped and fell in the bathroom today. Patient states she slipped on water in the bathroom, falling down to the ground onto her right side, injuring her hip. She is a poor historian and has intermittently said that she hit her head but she adamantly denies losing consciousness. She is on Plavix. No other full anticoagulation. She has been ambulatory but with significant pain in the right hip since the injury this morning. She denies any preceding dizziness, chest pain, shortness of breath. No abdominal pain, nausea, vomiting, diarrhea. No back pain. MD complaint: fall Onset (ago): hour(s) Fall from: standing Fall witnessed: no Place fall occurred: home Loss of consciousness: none Prolonged down time: no Symptoms prior to fall: none Context: tripped/slipped Location of injury: pelvis Severity: moderate Severity scale (1-10): 5 Quality: aching Associated symptoms (after fall): denies Related Data Home Medications ?Medication ?Instructions ?Recorded ?Confirmed acetaminophen 500 mg tablet 500 mg PO Q6H PRN 06/02/20 08/27/23 (Tylenol Extra Strength) aspirin 81 mg tablet,delayed 81 mg PO DAILY 06/02/20 08/27/23 release (Adult Low Dose Aspirin) cholecalciferol (vitamin D3) 25 25 mcg PO DAILY 06/02/20 08/27/23 mcg (1,000 unit) capsule multivitamin 1 tab PO DAILY 06/02/20 08/27/23 sacubitril 49 mg-valsartan 51 mg 1 tab PO BID 06/02/20 08/27/23 tablet vit tab PO 06/02/20 08/27/23 [id number] 500 mg-50 mg-25 mg-40 mg tablet (Bioflex) coenzyme Q10 100 mg capsule (Co 100 mg PO DAILY 02/12/22 08/27/23 Q-10) garlic 200 mg tablet 200 mg PO DAILY 08/15/22 08/27/23 propylene glycol 0.6 % eye drops 1 drp ophthalmic (eye) DAILY PRN 08/15/22 08/27/23 (Systane Complete) dextrin 3 gram/3.8 gram oral g PO 11/22/22 08/27/23 powder (Easy Fiber) ascorbic acid (vitamin C) 1,000 mg 1 g PO BID 08/27/23 08/27/23 capsule Previous Rx's ?Medication ?Instructions ?Recorded ipratropium bromide 21 mcg (0.03 2 spray intranasal BID #30 mL 08/15/22 %) nasal spray nitroglycerin 0.4 mg sublingual 0.4 mg sublingual Q5M PRN chest 02/19/23 tablet pain #30 tabs atorvastatin 20 mg tablet 20 mg PO DAILY #90 caps 06/04/23 clopidogrel 75 mg tablet 75 mg PO DAILY #90 tabs 06/24/23 metoprolol succinate 25 mg 25 mg PO DAILY 90 days #90 tabs 08/22/23 tablet,extended release 24 hr zolpidem 5 mg tablet 5 mg PO BEDTIME PRN sleep #30 tabs 08/27/23 donepezil 10 mg tablet 10 mg PO BEDTIME #90 tabs 09/02/23 memantine 5 mg tablet 5 mg PO BID 90 days #180 tabs 12/01/23 albuterol sulfate 90 mcg/actuation 2 puff inhalation Q4-6H PRN 02/25/24 aerosol inhaler (Proventil HFA) Shortness Of Breath #8.5 grams fluticasone furoate 200 1 inh inhalation DAILY #60 ea 02/25/24 mcg-vilanterol 25 mcg/dose inhalation powder (Breo Ellipta) alprazolam 0.5 mg tablet 0.5 mg PO BID PRN anxiety 90 days 03/29/24 #180 tabs Allergies Allergy/AdvReac Type Severity Reaction Status Date / Time alendronate sodium [Fosamax] Allergy Unknown unknown Verified 04/18/24 08:25 rosuvastatin [Crestor] Allergy Unknown leg pain Verified 04/18/24 08:25 psyllium AdvReac Severe Rash Verified 04/18/24 08:25 Review of Systems Review of Systems: Yes all other systems are reviewed and are negative [facility] Past Medical History Medical History (Updated 04/18/24 @ 11:17 by MINGO Madrigal) Obstructive sleep apnea C7 cervical fracture Traumatic coccydynia Cognitive impairment Cervical spinal stenosis Tubular adenoma of colon Right rotator cuff tear Wrist fracture, right Ankle fracture, left Urinary bladder cancer Peripheral vascular disease Insomnia Cardiomyopathy Vitamin D deficiency Lumbar degenerative disc disease Peripheral neuropathy COPD (chronic obstructive pulmonary disease) Coronary artery disease Hypercholesterolemia Hypertension Surgical History History of surgery History of hip replacement History of cataract surgery Family History Family History (Updated 11/22/22 @ 08:51 by Lizabeth Herrera CMA) Father Medical history unknown Mother Diabetes Social History Social History (Updated 05/04/21 @ 14:35 by LATOYA Porras) Housing: House Alcohol intake: current Alcohol intake frequency: holidays/special occasions only Patient Tobacco Use Status: Former Tobacco user Tobacco use type: Cigarette e-Cigarette/Vaping Use: Never Used Second Hand Smoke Exposure: Yes Advance Directives: Yes Advance Directives on File: Yes Advance Directives Date on File: 02/25/24 Do you have a plan to hurt others: No Plan service: No Current occupational status: retired and disabled Cognitive needs: No Hearing needs: No Vision needs: Yes Physical Exam Vital Signs: Vital Signs: Last Vital Signs Temp 97 F 04/18/24 11:42 Pulse 60 04/18/24 11:42 Resp 16 04/18/24 11:42 BP 127/54 L 04/18/24 11:42 Pulse Ox 94 04/18/24 11:42 O2 Del Method Room Air 04/18/24 11:42 BMI result Body Mass Index 26.5 Appearance: Alert, elderly female lying in the bed.. Oriented X3. No acute distress. Head: normocephalic, atraumatic. Eyes: Pupils equal, round and reactive to light. ENT: Pharynx normal. No tonsillar swelling or exudate. Neck: Normal inspection. Neck supple. Mild tenderness of the entire cervical spine with paraspinous muscle tenderness bilaterally. CVS: Normal heart rate and rhythm. Pulses normal. Respiratory: No respiratory distress. Breath sounds normal. Abdomen: Soft and nontender. +BS x4 Skin: Skin warm and dry. Normal skin color. Normal skin turgor. No rashes. Extremities: No lower extremity edema. No joint swelling. Tenderness of the right lateral hip and proximal thigh. No ecchymosis or swelling. Normal passive & active range of motion of the right hip, right knee. Pelvis is stable Neuro/psych: Oriented X 3. Strength is equal and symmetrical throughout, CN II- XII intact. Medications Administered Discontinued Medications Generic Name Dose Route Start Last Admin Trade Name Elizabeth PRN Reason Stop Dose Admin Acetaminophen 975 mg 04/18/24 09:01 04/18/24 09:10 Acetaminophen 325 Mg Tablet PO 04/18/24 09:02 975 mg ONCE ONE Administration Medical Decision Making Medical Decision Making [facility] Narrative: 88-year-old female with history of dementia, anxiety, history of C7 fracture in the past, bladder cancer, HTN, HLD, CAD, COPD, peripheral neuropathy who presents to the ER for evaluation from home with her daughter for evaluation of right hip pain after mechanical fall earlier today. She is able to ambulate after but with some discomfort and pain. She uses a walker at baseline. Examination is reassuring against a hip fracture, no deformity and she has full range of motion. CT scan was done to assess for a possible occult fracture or pubic rami fracture and this is negative for acute fracture. Her CT head was negative for any acute intracranial pathology. She has chronic cervical spinal changes that are unchanged from prior. We discussed possibility of staying in the ER for PT evaluation and short-term rehab, pain management however patient feels well and would like to go home. Her daughter is comfortable with this. Stable for discharge. Encouraged follow-up with primary care this week Differential Diagnosis Differential Diagnoses: The differential diagnosis associated with the pr esentation includes Hip fracture, pubic rami fracture, hip contusion, hip sprain Admission/Observation Consideration of admission/observation: Escalation of care including admission/observation considered Independent Interpretation I performed an independent interpretation of an: CT Scan Interpretation: CT scan with irregular acetabulum but no acute fracture, agrees radiology read CT head without any acute edema or bleed Radiology Impression Discussion of test interpretation with radiology: I have reviewed the radiologist's reading. Independent Historian Clinical information obtained from an independent historian. History obtained from or confirmed by: Other (Adult daughter at the bedside) External Record Review External record reviewed: Outpatient record, Prior outpatient labs and Prior outpatient radiology Prescription Management I considered prescription management with: Pain Medication Chronic Conditions Patient?s care impacted by: Other (Dementia) Critical Care Time Critical Care Time Critical Care Time: No Discharge Plan Discharge Clinical Impression: Contusion of hip, right Qualifiers: Encounter type: initial encounter Qualified Code(s): S70.01XA - Contusion of right hip, initial encounter Patient Disposition: Home, Self-Care Instructions: Hip Contusion (ED) Additional Instructions: Your CT scan did not show any evidence of acute fractures. No acute injuries of your head and neck. Use your walker whenever your ambulating, do so slowly. Take Tylenol around the clock as needed for pain. Use ice to the area as needed for pain. Follow-up with your doctor next week. If you develop new or worsening symptoms call 911 or come back to the ER for further evaluation. Prescriptions: No Action atorvastatin 20 mg tablet 20 mg PO DAILY Qty: 90 3RF clopidogrel 75 mg tablet 75 mg PO DAILY Qty: 90 3RF metoprolol succinate 25 mg tablet extended release 24 hr 25 mg PO DAILY 90 Days Qty: 90 3RF donepezil 10 mg tablet 10 mg PO BEDTIME Qty: 90 3RF memantine 5 mg tablet 5 mg PO BID 90 Days Qty: 180 3RF alprazolam 0.5 mg tablet 0.5 mg PO BID PRN (Reason: anxiety) 90 Days Qty: 180 1RF Entresto 49-51 mg tablet 1 tab PO BID aspirin [Adult Low Dose Aspirin] 81 mg tablet,delayed release (DR/EC) 81 mg PO DAILY acetaminophen [Tylenol Extra Strength] 500 mg tablet 500 mg PO Q6H PRN cholecalciferol (vitamin D3) 25 mcg (1,000 unit) capsule 25 mcg PO DAILY Bioflex [id number] mg tablet PO multivitamin Tablet 1 tab PO DAILY garlic 200 mg tablet 200 mg PO DAILY Systane Complete 0.6 % drops 1 drp ophthalmic (eye) DAILY PRN ipratropium bromide 21 mcg (0.03 %) spray,non-aerosol 2 spray intranasal BID Qty: 30 0RF Rx Instructions: administer into each nostril Easy Fiber 3 gram/3.8 gram powder PO nitroglycerin 0.4 mg tablet, sublingual 0.4 mg sublingual Q5M PRN (Reason: chest pain) Qty: 30 0RF Rx Instructions: do not exceed 3 doses per episode coenzyme Q10 [Co Q-10] 100 mg capsule 100 mg PO DAILY ascorbic acid (vitamin C) 1,000 mg capsule 1 g PO BID zolpidem 5 mg tablet 5 mg PO BEDTIME PRN (Reason: sleep) Qty: 30 1RF albuterol sulfate [Proventil HFA] 90 mcg/actuation HFA aerosol inhaler 2 puff inhalation Q4-6H PRN (Reason: Shortness Of Breath) Qty: 8.5 0RF fluticasone furoate-vilanterol [Breo Ellipta] 200-25 mcg/dose blister with device 1 inh inhalation DAILY Qty: 60 12RF Referrals: Po,Ben Lopez MD [Primary Care Provider] - Interventions: ED Discharge Assessment Last Done: 04/18/24 11:42 Discharge Date/Time: 04/18/24 11:47 Print Language: [place]ian
[2024-04-18] MEDS: Acetaminophen 325 MG TABLET 975 MG PO (09:10)
--- NOTE | 2024-04-18 10:35 | PC.NURSE ---
patient ambulated with steady shuffled gait to the bathroom.
[2024-04-18 11:42] VITALS: BP 127/54; PULSE 60; RESP 16; TEMP 36.1; O2SAT 94
== END 2024-04-18 11:47 | disposition home or self-care (01) ==
PROVIDERS: Emergency Provider Emergency Medicine; PCP Internal Medicine
DX: S70.01XA Contusion of right hip, initial encounter (principal); M54.2 Cervicalgia; R51.9 Headache, unspecified; I25.10 Atherosclerotic heart disease of native coronary artery without angina pectoris; I10 Essential (primary) hypertension; M79.651 Pain in right thigh; W18.2XXA Fall in (into) shower or empty bathtub, initial encounter; Y93.E1 Activity, personal bathing and showering; Y92.091 Bathroom in other non-institutional residence as the place of occurrence of the external cause; Y99.8 Other external cause status; Z79.899 Other long term (current) drug therapy
CPT/HCPCS: 70450; 72125; 73700; 99284

== ENCOUNTER 2024-08-31 10:17 | Outpatient (REF) | payer MEDICARE, SELFPAY ==
[2024-08-31 10:35] LABS: MANUAL DIFF FLAG NO
[2024-08-31 10:56] LABS: Basophils Absolute Auto 0.1 X10*3/uL (0.0-0.2); Basophils Percent Auto 1.4 % (0-2); Eosinophils Absolute Auto 0.1 X10*3/uL (0.0-0.4); Eosinophils Percent Auto 1.8 % (0-4); Hematocrit 44.6 % (37.0-47.0); Hemoglobin 13.9 g/dl (12.0-16.0); Imm Gran Abs Auto 0.05 X10*3/uL (0.00-0.03); Imm Gran Pct Auto 0.6 % (0.0-0.4); Lymphocytes Percent Auto 38.5 % (20-40); Mean Corpuscular HGB Conc 31.2 g/dl (31.0-35.0); Mean Corpuscular Hemoglobin 28.4 pg (27.0-33.0); Mean Corpuscular Volume 91.2 fL (80.0-98.0); Mean Platelet Volume 9.2 fL (9.4-12.3); Monocytes Absolute Auto 0.8 X10*3/uL (0.1-1.2); Monocytes Percent Auto 10.5 % (2-11); Neutrophils Absolute Auto 3.7 x10*3/uL (2.0-8.3); Neutrophils Percent Auto 47.2 % (45-73); Platelet Count 206 X10*3/uL (160-400); Red Blood Count 4.89 X10*6/uL (4.20-5.50); Red Cell Distribution Width 13.6 % (11.0-16.0); White Blood Count 7.9 X10*3/uL (4.8-10.8)
--- OUTSIDE RECORDS SUMMARY | 2024-08-31 11:12 | XMS_ITS | Encounter Summary ---
Author Organization [employer] Address [address] [place] [address] [address] [place] [address] Care Team Providers Care Electronic Tester Name Role Phone Unavailable Primary Care Provider Unavailabl e Encounter Details Date Type Department Care Team (Latest Contact Info) Description 05/26/2020 Abstract [facility] CONVERSIONS Dental, Provider, DDS Social History Tobacco Use Types Packs/Day Years Used Date Smoking Tobacco: Never Assessed Comments Unknown Sex and Gender Information Value Date Recorded Sex Assigned at Female 06/03/2022 10:23 AM EDT Legal Sex Female 10:23 AM EDT Gender Identity Female 06/03/2022 10:23 AM EDT Sexual Orientation Straight 06/03/2022 10 :23 AM EDT documented as of this encounter Plan of Treatment Not on file documented as of this encounter Visit Diagnoses Not on filedocumented in this encounter
--- OUTSIDE RECORDS SUMMARY | 2024-08-31 11:12 | XMS_ITS | Encounter Summary ---
Author Organization [employer] Address [address] [place] [address] [address] [place] [address] Care Team Providers Care Web Master Name Role Phone Unavailable Primary Care Provider Unavailabl e Encounter Details Date Type Department Care Team (Latest Contact Info) Description 04/12/2019 Abstract C CONVERSIONS Dental, Provider, DDS Social History Tobacco [...]
--- OUTSIDE RECORDS SUMMARY | 2024-08-31 11:12 | XMS_ITS | Data Portability ---
Author Organization [facility], [facility] Address [address] [place] [address] Care Team Providers Care Lay Out And Detail Drafter Name Role Phone DE MORTON Primary Care Provider Assessment No assessment recorded. Plan of Treatment Reminders Order Date Submit Date Provider Last Modified By Organization Details Last Modified Time Details Appointments None recorded . Lab None recorded . Referral None recorded . Procedures None recorded . Surgeries None recorded . Imaging XR, hip, unilater al, 2 or 3 view - 113 right hip 2v with marker 2023 024 diana [facility], [address], [address], [place], [address], 4 09:41:52 Medication Orders None recorded . Patient TargetsNo targets recorded. Patient InstructionsNo instructions recorded. Reason for Referral None Reported. Problems Name Problem SNOMED Code Status Onset Date Resolution Date Notes Provider Name and Address Organization Details Recorded Time Pain in right hip joint [id number] Active 2023 YUE pena, [facility] 4 16:53:54 Problem Notes None recorded. Procedures Surgical History Date Name Laterality Status Provider Name and Address Organization Details Recorded Time 4 Hip Kenalog 2cc Injection, L/R completed Davide Lee PA-C [address], [place], [address], [facility] 01/19/2024 08:37:49 Imaging Results None recorded. Procedure Notes None recorded. Medical Equipment None Reported. Allergies Allergen ID Allergen Name Allergen Category Reaction Reaction Severity Criticality Documentation Date Start Date Code Code System Note Provider Name and Address Organization Details Recorded Time 948987 psyllium food,medi cation Not available Not available Not available 11/25/2023 8928 RxNorm YUE BAUMANN [facility], [facility] 16:52:10 002352 rosuvasta tin medicatio n Not available Not available Not available 11/25/2023 97684 2 RxNorm YUE BAUMANN [facility] 16:52:17 493614 alendrona te sodium medicatio n Not available Not available Not available 11/25/2023 99093 2 RxNorm YUE BAUMANN [facility], [facility] 16:52:25 Medications Name Sig Start Date Stop Date Status Note LastModified by Organization Details LastModified Time atorvastatin 20 mg tablet TAKE 1 TABLET BY MOUTH DAILY. active Not Available Not Available No t Available donepezil 10 mg tablet TAKE ONE TABLET BY MOUTH AT BEDTIME active Not Available Not Available No t Available clopidogrel 75 mg tablet TAKE 1 TABLET BY MOUTH DAILY active Not Available Not Available No t Available alprazolam 0.5 mg tablet TAKE ONE TABLET BY MOUTH TWICE A DAY NEEDED FOR ANXIETY active Not Available Not Available No t Available nitroglycerin 0.[address] ONE TABLET UNDER THE TONGUE EVERY 5 MINUTES NEEDED FOR FOR CHEST PAIN; DO NOT EXCEED 3 DOSES PER EPISODE active Not Available Not Available No t Available zolpidem 5 mg tablet TAKE ONE TABLET BY MOUTH AT BEDTIME NEEDED FOR SLEEP active Not Available Not Available No t Available metoprolol succinate ER 25 mg tablet,extended release 24 hr TAKE ONE TABLET BY MOUTH EVERY DAY active Not Available Not Available No t Available memantine 5 mg tablet TAKE ONE TABLET BY MOUTH TWICE A DAY active Not Available Not Available No t Available Symbicort 160 mcg-4.5 mcg/actuation HFA aerosol inhaler INHALE TWO PUFFS BY MOUTH EVERY 12 HOURS active Not Available Not Available No t Available Entresto 49 mg-51 mg tablet TAKE ONE TABLET BY MOUTH TWICE A DAY active Not Available Not Available No t Available Vitals Date Recorded Body height Body mass index (BMI) Body weight Provider Name and Address Organization Details Last Updated DateTime 11/25/2023 157.48 cm 1.3 kg/m2 3175.15 g YUE BAUMANN [facility] 11/25/2023 16:51:07 Date Recorded Body height Provider Name an d Address Organization Details Last Updated DateTime 01/16/2024 157.48 cm MINGO Ernandez [address], [place], [address], [facility] 01/16/2024 15:58:57 Date Recorded Body height Provider Name an d Address Organization Details Last Updated DateTime 02/02/2024 157.48 cm NIKKIE MIRIAM [facility] 02/02/2024 10:48:19 Social History None recorded. Functional Status None recorded. Mental Status None recorded. Family History Nothing Reported. Medical History No medical history recorded. Gynecological HistoryNo gynecological history recorded. Obstetrics History GPAL:G 0 P 0 0 0 0 Past Encounters Encounter ID Performer Location Encounter Start Date Encounter Closed Date Diagnosis/Indication Diagnosis SNOMED-CT Code Diagnosis ICD10 Code Diagnosis Note [id number] Davide Lee PA-C [facility] [address] [place] [address] 11/25/2023 16:41:00 12/10/2023 09:41:52 Pain in right hip joint [id number] 18093 M25.245 [id number] Davide Lee PA-C [place] [address] [place] [address] 01/16/2024 15:45:23 02/09/2024 09:16:53 Trochanteric bursitis of right hip [id number] 77217 M70.61 [id number] Davide Lee PA-C [facility] [address] [place] [address] 02/02/2024 10:45:29 02/20/2024 10:16:38 Trochanteric bursitis of right hip [id number] 32549 M70.61 Health Concerns Section Related Observation LastModified by Organization Detai ls LastModified Time None Recorded Concern Status LastModified by Organization Details LastModified Time None Recorded Advance Directives Directive None Recorded Payers Encounter Date Sequence Insurance Name Policy Number Policy Pickett Covered Member ID Pickett Member ID Guarantor Name 11/25/2023 1 [facility]IC[place] PPO BLUE (MEDICARE REPLACEMENT PPO) [id number] Nicole I Costello [id number] Nicole Costello 01/16/2024 1 [place] PPO) [id number] Nicole I Costello [id number] Nicole Costello 02/02/2024 1 [place] PPO) [id number] Nicole I Costello [id number] Nicole Costello Notes Date Note Type Note Provider Name and Address Organization Details Recorded Time 11/25/2023 text/html I am seeing the patient today under the supervision of Dr. Aguirre who was available but who did not see the patient. HPI:Patient is an 88-year-old female who presents to the office today with her daughter for right hip pain. She has a history of a left total hip replacement done in [place] in 2017. Patient says as she's had right hip pain for the last couple of weeks. She primarily describes pain within her gluteal region. Has pain with prolonged standing and walking, getting up from a seated position, going up and downstairs as well as sleeping at night occasionally. Pain is nonconstant comes and goes. She has been utilizing Tylenol as needed for pain relief. Denies any specific inciting events or injuries. Patient states that pain is similar to what she experienced in the left hip prior to having it replaced. Denies any instability. Denies any groin pain. Past family, medical, social history and review of systems has been reviewed, updated and is located in the patient? s chart. Examination:Well appearing 88-year-old female in no acute distress. She is alert and oriented x3. She ambulates with symmetric gait. Right hip revealsNo erythema, warmth, ecchymosis, or swelling. Minimal tenderness palpation over the greater trochanter. There is tenderness palpation over the posterior gluteal region. Near full range of motion of the hip in all directions with no discomfort. Hip strength 5/5 against resistance in all directions. Slightly positive CELINA test. Negative Stinchfield test. Calf is soft nontender. 2 views of the right hip obtained and reviewedIn the office today reveal modc-kh-njeuhjhk degenerative changes noted with subchondral sclerosis and minimal osteophyte formation. Previous films of the left hip priorTo surgery were reviewed in PACS which did show severe arthritis in her hip with zxsl-uz-ptvl articulation. Impression:Right hip pain Plan:Discussed with the patient today that I am not entirely convinced that her dbgn-xs-xseazchr arthritis is contributing to her pain. Her pain is located mostly within the gluteal region and she is not experiencing significant pain with passive range of motion of the hip. Pain is also been there for only a couple of weeks. We did discuss continued with Tylenol as well as doing some light hip stretching at home to see if we can get some pain relief. If patient does not get significant relief then we can refer her to see Dr. Harrell for possible discussion of right total hip replacement surgery. Davide Lee PA-C [address] [place] [address] [address], [place], [address], [facility] 11/25/2023 18:04:17 01/16/2024 text/html I am seeing this patient under the supervision of dr. Mullen who was available but who did not see the patient.HPI: Patient is an 88-year-old female who presents to the office today for reevaluation of her right hip. Patient's been having right hip pain for the last couple of months. Originally seen approximately 2 months ago for her right hip. Pain at that point was primarily within the gluteal region as well as on the lateral aspect of her hip. Patient states that she is continuing to have pain in her hip. States that when she is sitting she does not have any pain but when she goes to ambulate pain begins. Pain is not located within the groin but mostly on the lateral aspect of her hip. Utilizing pcdb-rtf-gxwahkz medications as-needed. No specific inciting events or injuries. Her previous films did reveal some osteoarthritis in her right hip but it seemed that patient was having extra-articular symptoms and possibly not related to the osteoarthritis. We discussed previous Tylenol as garg and light stretching of her hip which has relieved her symptoms.Past family, medical, social history and review of systems has been reviewed, updated and is located in the patient's chart.Examination: Well appearing 88-year-old female in no acute distress. She is alert and oriented x3. She ambulates with symmetric gait.Right hip reveals no erythema, warmth, ecchymosis, or swelling. Tenderness to palpation over the greater trochanter. Near full range of motion of the hip in all directions with no discomfort. Hip strength 5/5 against resistance in all directions. Positive CELINA test. Negative Stinchfield test. Calf soft nontender.Impression : Right hip bursitis versus osteoarthritisPlan: Patient does have evidence of osteoarthritis on previous radiographic films but it does not seem like she is having a lot of intraarticular symptoms. I did have a discussion with the patient that we can try a possible bursal injection today to see if this can provide her with some relief. Patient agreed with this treatment option today. Please see procedure note for injection. Patient will be seen back by myself in approximately 3 weeks for reevaluation. If patient's pain goes away or as minimized with the injection then she will not need a referral for hip replacement surgery. If patient continues to experience pain in her hip then it could be referred pain from her arthritis and at that point we will refer her to speak with 1 of our total joint surgeons. Patient agrees with the treatment plan. At this time patient's questions and concerns were answered today. Davide Lee PA-C [address] [place] [address] [address], [place], [address], [facility] 01/19/2024 08:38:30 02/02/2024 text/html I am seeing this patient under the supervision of Dr. Gómez who was available but who did not see the patient. HPI: Patient is an 80-year-old female who presents to the office today for reevaluation of her right hip. Patient does have a known history of osteoarthritis present on previous radiographic findings. In her previous encounter her main concern was pain primarily over the gluteal region as well as the lateral aspect of her hip. She is denying any anterior groin pain. No recent injuries or falls. Patient was given a bursal injection at her last encounter approximately 3 weeks ago. This injection has provided her with excellent relief. Her daughter states that she has been moving a lot better in complaining of less pain. Past family, medical, social history and review of systems has been reviewed, updated and is located in the patient's chart. Examination: Well appearing 88-year-old female in no acute distress. She is alert and oriented x3. She ambulates with symmetric gait. Right hip reveals no erythema, warmth, ecchymosis, swelling. Minimal tenderness to palpation over the greater trochanter. No tenderness palpation over the gluteal region. Near full range of motion of the hip in all directions with no discomfort. Hip strength 5/5 against resistance in all directions. Slightly positive CELINA test. Negative Stinchfield test. Calf is soft and nontender. Impression: Asymptomatic right hip osteoarthritis, resolving right hip trochanteric bursitis Plan: At this point we have narrow down the patient's exact pain within her hip. Previous bursal injection provided her with good relief. Patient will continue with all her normal activities as tolerated. She will continue to monitor symptoms. If symptoms get worse over the next couple of months she can come back for a cortisone injection. Patient agrees with this treatment plan. At this time all patient's questions and concerns were answered today. Davide Lee PA-C [address] [place], [place] [address] [address], [place], [address], [facility] 02/02/2024 11:16:24 OBGyn Episode No OBEpisode recorded.
--- OUTSIDE RECORDS SUMMARY | 2024-08-31 11:12 | XMS_ITS | Clinical Summary ---
Author Organization [employer] Address [address] [facility] [address] [place] [address] Care Team Providers Care Automation Design Engineer Name Role Phone Unavailable Primary Care Provider Unavailabl e Social History Tobacco Use Types Packs/Day Years Used Date Smoking Tobacco: Never Assessed Comments Unknown Sex and Gender Information Value Date Recorded Sex Assigned at Female 06/03/2022 10:23 AM EDT Legal Sex Female 10:23 AM EDT Gender Identity Female 06/03/2022 10:23 AM EDT Sexual Orientation Straight 06/03/2022 10 :23 AM EDT Plan of Treatment Health Maintenance Due Date Last Done Comments Depression Screening 1935 Alcohol/Substance Use Screening 1947 Tobacco Screening 1947 DTaP/Tdap/Td Vaccines (1 - Tdap) 1954 Zoster Vaccines (1 of 2) 1985 Pneumococcal Vaccine: 65+ Ye ars (1 of 1 - PCV) 2000 RSV Patients and Pa tients Aged 60 years or older (1 - 1-dose 75+ series) 2010 COVID-19 Vaccine ( - 2023-2 5 season) 2024 Influenza Vaccine (#1) 2024 HIB Vaccines Aged Out No longer eligi ble based on patient's age to complete this topic HPV Vaccines Aged Out No longer eligi ble based on patient's age to complete this topic Hepatitis A Vaccines Aged Out No long er eligible based on patient's age to complete this topic Hepatitis B Vaccines Aged Out No long er eligible based on patient's age to complete this topic IPV Vaccines Aged Out No longer eligi ble based on patient's age to complete this topic Meningococcal Vaccine Aged Out No robert usman eligible based on patient's age to complete this topic RSV under 20 months Aged Out No longe r eligible based on patient's age to complete this topic Rotavirus Vaccines Aged Out No longer eligible based on patient's age to complete this topic
[2024-08-31 11:30] LABS: Appearance Urine Clear; Color Urine Yellow; Glucose Urine UA Negative (Negative); Leukocyte Esterase Urine Small (1+) (Negative); Nitrite Urine Negative (Negative); PH 5.5 (5.0-9.0); UMIC TRIGGER UACC YES; Urine Blood Moderate (2+) (Negative); Urine Ketones Negative (Negative); Urine Protein Negative (Neg-Trace)
[2024-08-31 11:46] LABS: Bacteria Urine None Seen (None Seen); Hyaline Casts Urine 0-2 /LPF (0-2); Squamous Epithelial Cell Urine 0-2 /HPF (0-2); UACC Culture Trigger YES; WBC Urine 0-5 /HPF (0-5)
[2024-08-31 11:51] LABS: B Type Natriuretic Peptide 244 pg/mL (<100)
[2024-08-31 12:02] LABS: Alanine Aminotransferase 46 U/L (0-31); Albumin Level 4.4 g/dL (3.5-5.0); Alkaline Phosphatase 118 U/L (39-117); Anion Gap 10 (12-20); Aspartate Amino Transferase 44 U/L (5-31); Bilirubin Total 0.4 mg/dL (0.0-1.0); Blood Urea Nitrogen 10 mg/dL (9-16); Calcium 9.8 mg/dL (8.4-10.2); Carbon Dioxide 29 mmol/L (22-29); Chloride 105 mmol/L (96-108); Estimated Glomerular Filt Rate > 60; Glucose Random 87 mg/dL (60-115); Potassium 4.3 mmol/L (3.3-5.1); Sodium 140 mmol/L (135-145); Total Protein 7.9 g/dL (6.5-8.0)
[2024-08-31 12:05] LABS: Free T4 (Free Thyroxine) 0.96 ng/dL (0.71-1.85); Thyroid Stimulating Hormone 1.31 uIU/mL (0.32-4.0); Vitamin D 25-OH Total 54.3 ng/mL (>30)
[2024-08-31 12:58] LABS: Folate 15.2 ng/mL (> or = 4.0); Vitamin B12 630 pg/mL (200-900)
== END 2024-08-31 10:18 | disposition home or self-care (01) ==
LOC: HO.LAB 10:17
PROVIDERS: PCP Internal Medicine; Visit Provider Internal Medicine
DX: R30.0 Dysuria (principal); I25.5 Ischemic cardiomyopathy; E78.00 Pure hypercholesterolemia, unspecified
CPT/HCPCS: 36415; 80053; 81001; 81003; 82306; 82607; 82746; 83735; 83880; 84439; 84443; 85025; 87086

== ENCOUNTER → 2024-09-01 08:24 | Outpatient (BNVA) | payer MEDICARE, SELFPAY | PROVIDERS: PCP Internal Medicine; Visit Provider Internal Medicine | DX: I25.10 Atherosclerotic heart disease of native coronary artery without angina pectoris (principal); I10 Essential (primary) hypertension; E78.00 Pure hypercholesterolemia, unspecified; J43.9 Emphysema, unspecified; M51.369 Other intervertebral disc degeneration, lumbar region without mention of lumbar back pain or lower extremity pain; S12.600A Unspecified displaced fracture of seventh cervical vertebra, initial encounter for closed fracture; R79.89 Other specified abnormal findings of blood chemistry; C67.9 Malignant neoplasm of bladder, unspecified; M79.604 Pain in right leg | CPT/HCPCS: 96127; 99212 ==

== ENCOUNTER 2024-09-27 09:37 | Outpatient (AMB) | payer MEDICARE, SELFPAY ==
--- OUTSIDE RECORDS SUMMARY | 2024-09-27 10:27 | XMS_ITS | Data Portability ---
Author Organization [facility] Address [address] [place] [address] Care Team Providers Care Spool Cleaner Hand Name Role Phone ED MORTON Primary Care Provider Assessment No assessment [...] [facility], [address], [place], [address], 4 09:41:52 Medication Orders None recorded . Patient TargetsNo targets recorded. Patient InstructionsNo instructions recorded. Reason for Referral None Reported. Problems Name Problem SNOMED Code Status Onset Date Resolution Date Notes Provider Name and Address Organization Details Recorded Time Pain in right hip joint [id number] Active 2023 YUE pena, [facility] 4 16:53:54 Problem Notes None recorded. Procedures Surgical History Date Name Laterality Status Provider Name and Address Organization Details Recorded Time 4 Hip Kenalog 2cc Injection, L/R completed Davide Lee PA-C [address], [place], [address], [facility] 01/19/2024 08:37:49 Imaging Results None recorded. Procedure Notes None recorded. Medical Equipment None Reported. Allergies Allergen ID Allergen Name Allergen Category Reaction Reaction Severity Criticality Documentation Date Start Date Code Code System Note Provider Name and Address Organization Details Recorded Time 005124 psyllium food,medi cation Not available Not available Not available 11/25/2023 8928 RxNorm YUE BAUMANN [facility], [facility] 16:52:10 115795 rosuvasta tin medicatio n Not available Not available Not available 11/25/2023 72608 2 RxNorm YUE BAUMANN [facility] 16:52:17 656461 alendrona te sodium medicatio n Not available Not available Not available 11/25/2023 14921 2 RxNorm YUE BAUMANN [facility], [facility] 16:52:25 Medications Name Sig Start Date Stop [...] cm 1.3 kg/m2 3175.15 g YUE BAUMANN [facility] 11/25/2023 16:51:07 Date Recorded Body height Provider Name an d Address Organization Details Last Updated DateTime 01/16/2024 157.48 cm MINGO Ernandez [address], [place], [address], [facility] 01/16/2024 15:58:57 Date Recorded Body height Provider Name an d Address Organization Details Last Updated DateTime 02/02/2024 157.48 cm NIKKIE MIRIAM [facility] 02/02/2024 10:48:19 Social History None recorded. Functional Status None recorded. Mental Status None recorded. Family History Nothing Reported. Medical History No medical history recorded. Gynecological HistoryNo gynecological history recorded. Obstetrics History GPAL:G 0 P 0 0 0 0 Past Encounters Encounter ID Performer Location Encounter Start Date Encounter Closed Date Diagnosis/Indication Diagnosis SNOMED-CT Code Diagnosis ICD10 Code Diagnosis Note [id number] Davide Lee PA-C [place] [address] [place] [place] [address] 11/25/2023 16:41:00 12/10/2023 09:41:52 Pain in right hip joint [id number] 14643 M25.807 [id number] Davide Lee PA-C [place] [address] [place] [address] 01/16/2024 15:45:23 02/09/2024 09:16:53 Trochanteric bursitis of right hip [id number] 04625 M70.61 [id number] Davide Lee PA-C [place] [address] [place] [address] 02/02/2024 10:45:29 02/20/2024 10:16:38 Trochanteric bursitis of right hip [id number] 24374 M70.61 Health Concerns Section Related Observation LastModified by Organization Detai ls LastModified Time None Recorded Concern Status LastModified by Organization Details LastModified Time None Recorded Advance Directives Directive None Recorded Payers Encounter Date Sequence Insurance Name Policy Number Policy Pickett Covered Member ID Pickett Member ID Guarantor Name 11/25/2023 1 [facility]: [place]ICARE PPO BLUE (MEDICARE REPLACEMENT PPO) [id number] Nicole I Costello [id number] Nicole Costello 01/16/2024 1 [facility] (MEDICARE [place]PLACEMENT PPO) [id number] Nicole I Costello [id number] Nicole Costello 02/02/2024 1 [employer] PPO) [id number] Nicole I Costello [id number] Nicole Costello Notes Date Note Type [...] a left total hip [place] done in [place] in 2017. Patient says as she's had [...] obtained and reviewedIn the office today reveal dkci-cj-qcjzdlwg degenerative changes noted with subchondral sclerosis and minimal osteophyte formation. Previous films of the left hip priorTo surgery were reviewed in PACS which did show severe arthritis in her hip with msna-ay-kwfs articulation. Impression:Right hip pain Plan:Discussed with the patient today that I am not entirely convinced that her xvyt-nx-aqulfdra arthritis is contributing to her pain. Her [...] total hip replacement surgery. Davide Lee PA-C [address] [place] [address] [address], [place], [address], [facility] 11/25/2023 18:04:17 01/16/2024 text/html I am seeing [...] the lateral aspect of her hip. Utilizing eobp-pfu-ktjblrv medications as-needed. No specific inciting events or [...] concerns were answered today. Davide Lee PA-C [address] [place] [address] [address], [place], [address], [facility] 01/19/2024 08:38:30 02/02/2024 text/html I am seeing [...] concerns were answered today. Davide Lee PA-C [address] [facility] [address], [place], [address], [facility] 02/02/2024 11:16:24 OBGyn Episode No OBEpisode recorded.
--- OUTSIDE RECORDS SUMMARY | 2024-09-27 10:27 | XMS_ITS | Encounter Summary ---
Author Organization [employer] Address [address] [place] [address] [address] [place] [address] Care Team Providers Care Lead Handler Name Role Phone Unavailable Primary Care Provider [...]
--- OUTSIDE RECORDS SUMMARY | 2024-09-27 10:27 | XMS_ITS | Encounter Summary ---
Author Organization [employer] Address [address] [place] [address] [address] [place] [address] Care Team Providers Care Medical Affairs Director Name Role Phone Unavailable Primary Care Provider Unavailabl e Encounter Details Date Type Department Care Team (Latest Contact Info) Description 05/26/2020 Abstract [facility] CONVERSIONS Dental, Provider, DDS Social History Tobacco [...]
--- OUTSIDE RECORDS SUMMARY | 2024-09-27 10:27 | XMS_ITS | Clinical Summary ---
Author Organization [employer] Address [address] [facility] [address] [place] [address] Care Team Providers Care Instrument And Controls Technician Name Role Phone Unavailable Primary Care Provider [...] 1947 DTaP/Tdap/Td Vaccines (1 - Tdap) 1954 Pneumococcal Vaccine: 50+ Ye ars (1 of 1 - PCV) 1985 Zoster Vaccines (1 of 2) 1985 RSV Patients and Pa tients Aged 60 [...]
[2024-09-27 10:32] VITALS: BP 104/70; PULSE 62; O2SAT 93
--- NOTE | 2024-09-27 10:32 | AM.OFFWIN_ITS ---
Intake Vital Signs 09/27/24 10:32 Height 5 ft 2 in BP 104/70 Blood Pressure Location Lt brachial Position Sitting Pulse 62 Pulse Source Pulse Oximeter Pulse Oximetry (%) 93 Oxygen Delivery Method Room Air Intake Visit Reasons: EP-rt lower leg pain Intake Note: pt is here for right lower leg pain Patient Tobacco Use Status: Former Tobacco user Allergies alendronate sodium [Fosamax] Allergy (Unknown, Verified 09/27/24 10:32) unknown rosuvastatin [Crestor] Allergy (Unknown, Verified 09/27/24 10:32) leg pain psyllium Adverse Reaction (Severe, Verified 09/27/24 10:32) Rash Do you need a note to return to daycare/school/sports/work: No HPI HPI Comments History of Present Illness Details 89 y/o female patient who presents to [facility] walk in clinic with right lower leg pain. Pt reports pain with ROM and ambulation. She was seen by PCP few weeks back and treated with Voltaren, Flexeril and Acetaminophen with no improvement. She has tried Physical therapy in the past with no relief. Daughter reports that it is getting very hard for Pt to leave the house due to pain for PT sessions, she is wondering if Patient can do PT sessions at home. [facility] Medical History (Updated 09/27/24 @ 11:37 by Cherelle Kaplan NP) Osteoarthritis of right hip Obstructive sleep apnea C7 cervical fracture Traumatic coccydynia Cognitive impairment Cervical spinal stenosis Tubular adenoma of colon Right rotator cuff tear Wrist fracture, right Ankle fracture, left Urinary bladder cancer Peripheral vascular disease Insomnia Cardiomyopathy Vitamin D deficiency Lumbar degenerative disc disease Peripheral neuropathy COPD (chronic obstructive pulmonary disease) Coronary artery disease Hypercholesterolemia Hypertension Surgical History History of surgery History of hip replacement History of cataract surgery Family History (Updated 11/22/22 @ 08:51 by Lizabeth Herrera CMA) Father Medical history unknown Mother Diabetes Social History (Updated 05/04/21 @ 14:35 by LATOYA Porras) Housing: House Alcohol intake: current Alcohol intake frequency: holidays/special occasions only Patient Tobacco Use Status: Former Tobacco user Tobacco use type: Cigarette e-Cigarette/Vaping Use: Never Used Second Hand Smoke Exposure: Yes Advance Directives Date on File: 02/25/24 service: No Current occupational status: retired and disabled Cognitive needs: No Hearing needs: No Vision needs: Yes Review of Systems Const All systems reviewed & are unremarkable except as noted in HPI and below Physical Exam Vital Signs: Last Vital Signs Pulse 62 09/27/24 10:32 BP 104/70 09/27/24 10:32 Pulse Ox 93 09/27/24 10:32 Oxygen Delivery Method Room Air 09/27/24 10:32 Const General: cooperative and no acute distress Nutritional Appearance: obese Orientation/consciousness: patient oriented x3 Neuro General: patient oriented x3, gait normal and moves all extremities Extrem Right lower extremity: normal to inspection and full ROM Left lower extremity: normal to inspection and full ROM Assessment & Plan Assessment & Plan (1) Lumbar degenerative disc disease: Comment: Herniated disc [facility] Code(s): M51.36 - Other intervertebral disc degeneration, lumbar region Qualifiers: Disc-related pain type: lower extremity pain only Qualified Code(s): M51.361 - Other intervertebral disc degeneration, lumbar region with lower extremity pain only Plan: Acetaminophen for pain relief Ice/Hot Continue using Voltaren cream Will Message PCP for Home Physical therapy. (2) Osteoarthritis of right hip: Code(s): M16.11 - Unilateral primary osteoarthritis, right hip Qualifiers: Osteoarthritis type: unspecified Qualified Code(s): M16.11 - Unilateral primary osteoarthritis, right hip Plan: Acetaminophen for pain relief Ice/Hot Continue using Voltaren cream Will Message PCP for Home Physical therapy. Coding Level of Care Code Est Pt Level 4 (37992) Diagnoses Degeneration of intervertebral disc of lumbar region with lower extremity pain M51.361 Disc-related pain type: lower extremity pain only Osteoarthritis of right hip, unspecified osteoarthritis type M16.11 Osteoarthritis type: unspecified Time Spent (min) 20
== END 2024-09-27 11:11 | disposition home or self-care (01) ==
PROVIDERS: PCP Internal Medicine; Visit Provider Nurse Practitioner Family
DX: M51.361 Other intervertebral disc degeneration, lumbar region with lower extremity pain only (principal); M16.11 Unilateral primary osteoarthritis, right hip

== ENCOUNTER → 2024-09-27 09:37 | Outpatient (BNVA) | payer MEDICARE, SELFPAY | PROVIDERS: PCP Internal Medicine | DX: M51.361 Other intervertebral disc degeneration, lumbar region with lower extremity pain only (principal); M16.11 Unilateral primary osteoarthritis, right hip | CPT/HCPCS: 99212 ==

== ENCOUNTER 2024-10-06 08:19 | Outpatient (REF) | payer MEDICARE, SELFPAY ==
--- NOTE | ~2024-10-06 | US_ITS ---
CLINICAL HISTORY: R79.89 - Other specified abnormal findings of blood chemistry US abdomen complete Comparison: None Findings: The visualized pancreas is normal. The aorta and inferior vena cava are normal caliber. The liver is normal in size and increased in echogenicity. There is no intrahepatic bile duct dilatation. The common duct is 4 mm in diameter. The gallbladder is normal. There is no sonographic Rosas sign. The main portal vein is antegrade. The right kidney is 9.5 cm in length. There is a simple 1.1 cm cyst in the interpolar right kidney. In the lower pole of the right kidney there is a small 0.6 cm cyst as well. Mild fullness of the right renal pelvis without hydronephrosis. The left kidney is 9.8 cm in length. Normal appearance of the left kidney. The spleen is normal. Splenic length measures 9.1 cm. No ascites. IMPRESSION: 1. Hepatic steatosis 2. There are 2 cysts within the right kidney. This document has been electronically signed by: Tung Redd MD on 10/07/2024 20:43:15
--- OUTSIDE RECORDS SUMMARY | 2024-10-06 08:45 | XMS_ITS | Encounter Summary ---
Author Organization [employer] Address [address] [place] [address] [address] [place] [address] Care Team Providers Care Consumer Sales Representative Name Role Phone Unavailable Primary Care Provider Unavailabl e Encounter Details Date Type Department Care Team (Latest Contact Info) Description 05/26/2020 Abstract [facility] CONVERSIONS Dental, Provider, DDS Social History Tobacco [...]
--- OUTSIDE RECORDS SUMMARY | 2024-10-06 08:45 | XMS_ITS | Clinical Summary ---
Author Organization [employer] Address [address] [facility] [address] [place] [address] Care Team Providers Care Circular Knife Cutter Machine Name Role Phone Unavailable Primary Care Provider [...]
--- OUTSIDE RECORDS SUMMARY | 2024-10-06 08:45 | XMS_ITS | Encounter Summary ---
Author Organization [employer] Address [address] [place] [address] [address] [place] [address] Care Team Providers Care Refresh Technician Name Role Phone Unavailable Primary Care [...]
== END 2024-10-06 08:20 | disposition home or self-care (01) ==
LOC: HO.US 08:19
PROVIDERS: PCP Internal Medicine; Visit Provider Internal Medicine
DX: R79.89 Other specified abnormal findings of blood chemistry (principal)
CPT/HCPCS: 76700

== ENCOUNTER → 2024-10-06 08:22 | Outpatient (BNV) | payer MEDICARE, SELFPAY | PROVIDERS: PCP Internal Medicine; Visit Provider Radiology Diagnostic Radiology | DX: N20.0 Calculus of kidney (principal); K76.0 Fatty (change of) liver, not elsewhere classified | CPT/HCPCS: 76700 ==